=== PATIENT | male | born 1980 | race American Indian/Alaskan Native ===

== ENCOUNTER 2016-08-31 10:52 | Outpatient (CLI) | payer BC ==
[2016-08-31 11:53] LABS: Blood Urea Nitrogen 12 mg/dL (9-20)
--- NOTE | 2016-08-31 13:16 | Magnetic Resonance Report ---
MRI BRAIN WITH/WITHOUT CONTRAST: History: Headache, sarcoidosis. Technique: Multiple T1 and T2 weighted images were obtained in multiple planes. Axial diffusion and gradient imaging was performed. Post contrast T1 images in two planes were obtained following IV gadolinium. Findings: The brain parenchyma signal intensity and its rey-white interface are normal on all sequences. No abnormal parenchymal signal. No diffusion restriction, hemorrhage, mass effect or extra-axial fluid collection. Ventricular size is normal and symmetric. The basal cisterns are clear. The brainstem and cerebellar hemispheres are within normal limits. The fourth ventricle is midline. The paranasal sinuses and mastoid air cells are well aerated. Normal flow voids are identified in the appropriate vessels at the havasupai of Nicole. No abnormal enhancement is identified following IV gadolinium. Impression: 1. Unremarkable MRI brain with and without contrast.
== END 2016-08-31 10:53 | disposition home or self-care (01) ==
LOC: MRI 10:52
PROVIDERS: ATTEND Psychiatry & Neurology Neurology
DX: D86.9 Sarcoidosis, unspecified (principal); R51 Headache
CPT/HCPCS: 36415; 70553; 82565; 84520; A9577

== ENCOUNTER 2019-04-06 12:09 | Emergency (ER) | payer BC ==
--- NOTE | 2019-04-06 12:37 | Emergency Department Report ---
Blank Doc - Documentation Documentation: This is a 38-year-old male that prsents with RUQ pain with n/v. This initial assessment/diagnostic orders/clinical plan/treatment(s) is/are subject to change based on patient's health status, clinical progression and re- assessment by fellow clinical providers in the ED. Further treatment and workup at subsequent clinical providers discretion. Patient/guardians urged not to elope from the ED as their condition may be serious if not clinically assessed and managed. Initial orders include: 1- Patient sent to [facility] for further evaluation and treatment 2- labs 3- UA
[2019-04-06 13:04] LABS: Basophils # (Auto) 0.1 K/mm3 (0.0-0.1); Basophils % (Auto) 0.7 % (0.0-1.8); Eosinophils # (Auto) 0.1 K/mm3 (0.0-0.4); Eosinophils % (Auto) 0.5 % (0.0-4.3); Hematocrit 53.2 % (35.5-45.6); Hemoglobin 17.6 gm/dl (11.8-15.2); Lymphocytes # (Auto) 1.7 K/mm3 (1.2-5.4); Lymphocytes % (Auto) 16.1 % (13.4-35.0); Mean Corpuscular HGB Conc 33 % (32-34); Mean Corpuscular Volume 88 fl (84-94); Monocytes # (Auto) 0.4 K/mm3 (0.0-0.8); Monocytes % (Auto) 3.4 % (0.0-7.3); Platelet Count 297 K/mm3 (140-440); Red Blood Count 6.02 M/mm3 (3.65-5.03); Red Cell Distribution Width 14.8 % (13.2-15.2)
[2019-04-06 13:21] LABS: Alanine Aminotransferase 19 units/L (7-56); Albumin 4.8 g/dL (3.9-5); BUN/Creatinine Ratio 14; Blood Urea Nitrogen 18 mg/dL (9-20); Calcium 9.9 mg/dL (8.4-10.2); Hemolysis Index 7
[2019-04-06 14:29] LABS: Bilirubin,Urine NEG (Negative); Blood,Urine SM (Negative); Color,Urine Yellow (Yellow); Mucus,Urine FEW /HPF; Protein,Urine <15 mg/dL mg/dL (Negative); Urobilinogen,Urine < 2.0 mg/dL (<2.0)
[2019-04-06] MEDS ORDERED: ALUM-MAG HYDROX-SIMETH 200-200-20MG/5ML PO STA (15:36)
[2019-04-06] MEDS ORDERED: LIDOCAINE VISCOUS 2% PO STA (15:37)
--- NOTE | 2019-04-06 15:37 | Emergency Department Report ---
ED Abdominal Pain HPI - General Chief Complaint: Abdominal Pain Stated Complaint: CHEST PAIN Time Seen by Provider: 04/06/19 12:36 Source: patient Mode of arrival: Ambulatory Limitations: No Limitations - History of Present Illness Initial Comments: 38-year-old male to emergency department complaining of one upper quadrant abdominal pain started about 7 AM this morning associated with nausea and vomiting 3. No diarrhea no constipation. No fever, chills, sweats. No chest pain, no dysuria, no hematuria, hematemesis, hematochezia. Pain primarily is in the epigastric region and radiated. It radiates over to the right upper quadrant he's tried to drink some MiraLAX but was unable to keep down. Reports no shortness of breath, wheezing, palpitations. Radiation: none Migration to: no migration Severity: mild Quality: dull Consistency: constant Improves With: nothing Worsens With: nothing Associated Symptoms: nausea. denies: diarrhea, constipation, hematuria, anorexia, syncope - Related Data Home Medications Medication Instructions Recorded Confirmed Last Taken predniSONE 10 mg PO DAILY 10/25/14 10/25/14 Unknown Previous Rx's Medication Instructions Recorded Last Taken Type Hyoscyamine Subl [Levsin Sl 0.125 0.125 mg SL Q6HR PRN #20 tab 04/06/19 Unknown Rx TAB] Omeprazole 40 mg PO DAILY #7 capsule. 04/06/19 Unknown Rx Ondansetron [Zofran ODT TAB] 8 mg PO Q12HR #14 tab.rapdis 04/06/19 Unknown Rx Allergies Allergy/AdvReac Type Severity Reaction Status Date / Time ibuprofen Allergy Swelling,HARD Unverified 08/31/16 10:53 TO BREATHE,HIVES ED Review of Systems ROS: Stated complaint: CHEST PAIN Other details as noted in HPI Comment: All other systems reviewed and negative ED Past Medical Hx - Past Medical History Previous Medical History?: Yes Hx Hypertension: Yes Additional medical history: SARCOIDOSIS - Surgical History Past Surgical History?: No Additional Surgical History: Lumbar fusion 2017 - Social History Smoking Status: Current Every Day Smoker Substance Use Type: None - Medications Home Medications: Home Medications Medication Instructions Recorded Confirmed Last Taken Type predniSONE 10 mg PO DAILY 10/25/14 10/25/14 Unknown History Hyoscyamine Subl [Levsin Sl 0.125 0.125 mg SL Q6HR PRN #20 tab 04/06/19 Unknown Rx TAB] Omeprazole 40 mg PO DAILY #7 capsule. 04/06/19 Unknown Rx Ondansetron [Zofran ODT TAB] 8 mg PO Q12HR #14 tab.rosalio 04/06/19 Unknown Rx ED Physical Exam - General Limitations: No Limitations General appearance: alert, in no apparent distress - Head Head exam: Present: atraumatic, normocephalic - Eye Eye exam: Present: normal appearance, PERRL, EOMI Pupils: Present: normal accommodation - ENT ENT exam: Present: normal exam, normal orophraynx, mucous membranes moist, TM's normal bilaterally - Neck Neck exam: Present: normal inspection - Respiratory Respiratory exam: Present: normal lung sounds bilaterally. Absent: respiratory distress, rales, rhonchi, chest wall tenderness, accessory muscle use, decreased breath sounds - Cardiovascular Cardiovascular Exam: Present: regular rate, normal rhythm. Absent: systolic murmur, diastolic murmur, rubs, gallop - GI/Abdominal GI/Abdominal exam: Present: soft, tenderness (to the epigastric region to the epigastric region), normal bowel sounds. Absent: distended, guarding, rigid, hyperactive bowel sounds, bruit, pulsatile mass - Rectal Rectal exam: Present: deferred - Extremities Exam Extremities exam: Present: normal inspection, full ROM, normal capillary refill. Absent: pedal edema - Back Exam Back exam: Present: normal inspection, tenderness, CVA tenderness (R), CVA tenderness (L) - Neurological Exam Neurological exam: Present: alert, oriented X3, CN II-XII intact, normal gait - Psychiatric Psychiatric exam: Present: normal affect, normal mood. Absent: anxious, flat affect, suicidal ideation - Skin Skin exam: Present: warm, dry, intact, normal color. Absent: rash, cyanosis, diaphoretic, erythema, urticaria, petechiae, pallor, abrasion ED Course Vital Signs 04/06/19 04/06/19 12:37 16:01 Temperature 98.3 F 97.7 F Pulse Rate 72 75 Respiratory 19 16 Rate Blood Pressure 136/87 Blood Pressure 149/95 [Left] O2 Sat by Pulse 98 98 Oximetry - Reevaluation(s) Reevaluation #2: 04/06/19 16:56 GI cocktail resolved his symptoms. Patient is feels much improved and now requesting to be discharged home abdominal pain is minimal, nausea is resolved ED Medical Decision Making - Lab Data Result diagrams: 04/06/19 12:43 04/06/19 12:43 Critical care attestation.: If time is entered above; I have spent that time in minutes in the direct care of this critically ill patient, excluding procedure time. ED Disposition Clinical Impression: Abdominal pain, Nausea & vomiting Disposition: DC-01 TO HOME OR SELFCARE Is pt being admited?: No Does the pt Need Aspirin: No Condition: Stable Instructions: Acute Nausea and Vomiting (ED), Abdominal Pain (ED) Referrals: TAMARA GRUBER MD [Primary Care Provider] - 3-5 Days [facility] [Provider Group] - 3-5 Days
[2019-04-06 16:10] VITALS: BP 136/87
== END 2019-04-06 17:13 | disposition home or self-care (01) ==
LOC: ED 12:09
DX: R10.10 Upper abdominal pain, unspecified (principal); R11.2 Nausea with vomiting, unspecified; I10 Essential (primary) hypertension; F17.200 Nicotine dependence, unspecified, uncomplicated; Z88.6 Allergy status to analgesic agent; Z79.899 Other long term (current) drug therapy
CPT/HCPCS: 36415; 80053; 81001; 83690; 85025; 93005; 93010